=== PATIENT | male | born 1935 | race American Indian/Alaskan Native ===

== ENCOUNTER 2016-12-09 09:39 | Outpatient (CLI) | payer MEDICARE ==
--- NOTE | 2016-12-09 14:30 | Ultrasound Report ---
Complete abdominal ultrasound: Cirrhosis. The liver appears to have smooth margins and is relatively normal in size. The echotexture however is heterogeneous. The only focal finding is an area of hyperdensity in the mid right lobe. The portal vasculature appears somewhat prominent at the hilum. The gallbladder is echogenically unremarkable. The diameter of the CBD is 6 mm. The spleen is not well visualized but appears grossly unremarkable. The pancreas is slightly hyperechogenic with no mass noted. The right renal length is 11.8 cm and the left kidney measures 10.9 cm. Both kidneys have normal echogenicity. There is no hydronephrosis. There are multiple echolucent masses throughout both kidneys. The largest on the right is approximately 4.2 cm and on the left 8.3 cm. The transverse diameter of the proximal abdominal aorta is 2.8 cm. Impressions: 1. The liver findings are nonspecific but could represent cirrhosis. 2. The focal liver hyperechogenic finding most likely represents hemangioma. 3. Fatty pancreas. 4. Bilateral renal cysts.
== END 2016-12-09 09:40 | disposition home or self-care (01) ==
LOC: US 09:39
PROVIDERS: ATTEND Internal Medicine Gastroenterology
DX: K74.60 Unspecified cirrhosis of liver (principal); N28.1 Cyst of kidney, acquired; K86.89 Other specified diseases of pancreas
CPT/HCPCS: 76700

== ENCOUNTER 2017-01-22 07:39 | Outpatient (CLI) | payer MEDICARE ==
--- NOTE | 2017-01-22 16:19 | Magnetic Resonance Report ---
MRI ABDOMEN WITHOUT AND WITH CONTRAST : 01/22/17 08:05:00 CLINICAL: Cirrhosis of the liver. COMPARISON :06/15/16 TECHNIQUE: Axial T1 in phase and opposed phase, coronal and axial T2 and axial T2 sequences without contrast on a 1.5 Lucy magnet. FINDINGS: The liver is borderline small with normal contour and signal. No liver nodularity or mass identified. The portal vein appears patent and normal in size. The bile ducts and gallbladder are normal. Normal stomach, duodenum and spleen. No varices are identified. The pancreas is atrophic and fatty replaced. No pancreatic mass or fluid. No ascites. Normal adrenal glands. Multiple bilateral renal cysts. The largest on the left measures 5.7 cm. The renal collecting systems and ureters are nondilated. No renal mass. Small bowel and colon are unremarkable. The bones and soft tissues are normal. IMPRESSION: Borderline small liver and no other signs of cirrhosis. No signs of portal hypertension. Normal biliary tract. Atrophic fatty replaced pancreas. Bilateral benign renal cysts.
== END 2017-01-22 07:40 | disposition home or self-care (01) ==
LOC: MRI 07:39
PROVIDERS: ATTEND Internal Medicine Gastroenterology
DX: K74.60 Unspecified cirrhosis of liver (principal); N28.1 Cyst of kidney, acquired; K86.89 Other specified diseases of pancreas
CPT/HCPCS: 36415; 74181; 82565; 84520

== ENCOUNTER 2017-05-28 09:14 | Outpatient (CLI) | payer MEDICARE ==
--- NOTE | 2017-06-02 18:27 | Magnetic Resonance Report ---
MR scan of the cranium was performed without contrast. Pulse sequences included: 1. T1 weighted sagittal and axial images without contrast 2. T2 weighted axial and coronal images 3. FLAIR axial images 4. Diffusion-weighted axial images 5. Apparent diffusion coefficient images Views of the posterior fossa showed a normal craniocervical junction. Cerebellar pontine angles were normal with normal seventh-eighth nerve complexes. Brainstem and cerebellum were normal. The ventricular system showed no dilatation or distortion. Images of the hemispheres showed no areas of increased or decreased signal. The basal ganglia including the globus pallidus and putamen as well as the red nuclei showed marked decreased signal on DWI images as well as on T1 images and less so on T2 images. Increased signal was seen in the caudates on ADC images. No "eye of the tiger" type images were seen Sinuses, flow voids in the false pass of Fregoso, orbits, and pituitary were normal. Impression: Abnormal MR scan of the cranium without contrast. a. decreased signal in the basal ganglia Although this finding of markedly decreased signal in the basal ganglia may be a phenomenon of aging, the possibility of a neuro ferritinopathy might be considered. Pantothenate kinase abnormalities might produce this without producing an eye of the tiger image. In a patient with liver disease, there should be a consideration of Huang's disease.
== END 2017-05-28 09:15 | disposition home or self-care (01) ==
LOC: MRI 09:14
PROVIDERS: ATTEND Specialist
DX: G60.9 Hereditary and idiopathic neuropathy, unspecified (principal); R27.0 Ataxia, unspecified; R93.8 Abnormal findings on diagnostic imaging of other specified body structures; I10 Essential (primary) hypertension; J44.9 Chronic obstructive pulmonary disease, unspecified; D64.9 Anemia, unspecified; Z87.891 Personal history of nicotine dependence
CPT/HCPCS: 70551

== ENCOUNTER 2017-06-22 09:12 | Outpatient (CLI) | payer MEDICARE ==
--- NOTE | 2017-06-22 14:51 | Ultrasound Report ---
ULTRASOUND ABDOMEN COMPLETE: Technique: Transabdominal ultrasound with color Doppler interrogation. History: Cirrhosis. Findings: The liver is slightly echogenic consistent with fatty infiltration. No surface nodularity or other findings of cirrhosis are confidently identified. No liver mass. The gallbladder dimensions are within normal limits without intraluminal stone, wall thickening, or pericholecystic fluid. The CBD is normal caliber. The visualized portions of the pancreas including the head and proximal body are within normal limits. The kidneys demonstrate no hydronephrosis or mass. Cortical thickness and echogenicity are within normal limits bilaterally. There are multiple, bilateral simple renal cysts which are unchanged since the ultrasound dated 12/09/16. The spleen and aorta are within normal limits. No aneurysmal dilatation is noted. No ascites. The bladder is unremarkable. IMPRESSION: Mild fatty infiltration of the liver. No convincing findings of cirrhosis. Bilateral renal cysts.
== END 2017-06-22 09:13 | disposition home or self-care (01) ==
LOC: US 09:12
PROVIDERS: ATTEND Internal Medicine Gastroenterology
DX: K76.0 Fatty (change of) liver, not elsewhere classified (principal); N28.1 Cyst of kidney, acquired
CPT/HCPCS: 76700